=== PATIENT | male | born 1940 | race Caucasian/White ===

== ENCOUNTER 2024-03-20 16:06 | Inpatient (IN) | payer MEDICARE, BC ==
[~2024-03-20] VITALS: Ht 177.8 cm; Wt 94.0 kg
[2024-03-20 16:53] LABS: BASOPHILS % (AUTO) 0.6 % (0-1); EOSINOPHILS # (AUTO) 0.5 X10'3 (0-0.9); EOSINOPHILS % (AUTO) 7.9 % (0-6); HEMOGLOBIN 13.3 g/dl (14.0-17.9); LYMPHOCYTES # (AUTO) 1.3 X10'3 (1.1-4.8); LYMPHOCYTES % (AUTO) 18.5 % (21-51); MEAN CORPUSCULAR HGB CONC 33.2 g/dL (33.0-36.5); MEAN CORPUSCULAR VOLUME 99.3 FL (78-98); MEAN PLATELET VOLUME 7.4 FL (7.4-10.4); MONOCYTES % (AUTO) 14.8 % (2-12); NEUTROPHILS % (AUTO) 58.2 % (42-75); PLATELET COUNT 197 X10'3 (140-440); RED BLOOD COUNT 4.03 X10'6 (4.70-6.10); RED CELL DISTRIBUTION WIDTH 15.1 % (11.5-14.5); WHITE BLOOD COUNT 6.9 X10'3 (4.5-11.0)
[2024-03-20 17:13] LABS: ALBUMIN 2.9 G/DL (3.4-5.0); ANION GAP 10 (8-16); BLOOD UREA NITROGEN 39 MG/DL (7-18); BUN/CREATININE RATIO 21.8 (10.0-20.0); CALCIUM 9.1 MG/DL (8.5-10.1); CHLORIDE 106 MMOL/L (99-107); CREATININE 1.79 MG/DL (0.60-1.10); GLUCOSE 98 MG/DL (70-104); SODIUM 141 MMOL/L (135-145); eCRCL 34 ML/MIN; eGFR 36 ML/MIN
[2024-03-20] MEDS ORDERED: DOXA1TAB2 PO (18:11)
[2024-03-20] MEDS ORDERED: METO-384 PO (18:14)
[2024-03-20] MEDS ORDERED: FURO-149 PO (18:14)
[2024-03-20] MEDS ORDERED: SPIR25TA5 PO (18:15)
[2024-03-20] MEDS ORDERED: FLO0.4C PO (18:16)
[2024-03-20] MEDS ORDERED: BRIM5DRO6 EACHEYE (18:18)
[2024-03-20] MEDS ORDERED: APIX2.5T PO (18:18)
[2024-03-20 18:27] LABS: D-DIMER 1.78 MG/L FEU (0-0.50)
[2024-03-20] MEDS: normal saline 1000ML IV soln IVB ONE (18:41)
[2024-03-20] MEDS ORDERED: ondansetron/PF 4mg/2ml inj IV PRN (20:15)
[2024-03-20] MEDS ORDERED: HYDROmorphone/PF 0.2 MG/ML SYRINGE IV PRN (20:15)
[2024-03-20] MEDS ORDERED: magnesium sulf-water 4G/100mL 100 ML IV PRN (20:15)
[2024-03-20] MEDS ORDERED: magnesium Cl slow-release 64mg tablet PO PRN (20:15)
[2024-03-20] MEDS ORDERED: mag hydrox/Alum hydrox/simeth 30ml oral suspension PO PRN (20:15)
[2024-03-20] MEDS ORDERED: morphine 2 MG/ML inj. syringe IV PRN ×2 (20:15)
[2024-03-20] MEDS ORDERED: magnesium hydroxide 30ml (MOM) UD suspension PO PRN (20:15)
[2024-03-20] MEDS ORDERED: potassium Cl 40MEQ/1/2NS 520ml 520 ML IV PRN (20:15)
[2024-03-20] MEDS ORDERED: acetaminophen 325mg tablet PO PRN (20:15)
[2024-03-20] MEDS ORDERED: potassium Cl 20 mEq SR tablet PO PRN ×2 (20:15)
[2024-03-20] MEDS ORDERED: magnesium sulf-water 2g/50mL 50 ML IV PRN (20:15)
[2024-03-20] MEDS ORDERED: HYDROmorphone inj. 0.5 MG/0.5 ML DISP.SYRIN IV PRN (20:15)
[2024-03-20] MEDS: HEPARIN DRIP DVT/PE -**PHARMACIST TO DOSE IV ONE (20:40)
[2024-03-20 20:45] LABS: HEMOGLOBIN A1C 6.1 % (4.5-6.2)
[2024-03-20] MEDS ORDERED: heparin, porcine 5000 units/ml vial SQ SCH (21:00)
[2024-03-20 21:08] LABS: PRO BRAIN NATRIURETIC PEPTIDE 1448 PG/ML (0-450)
[2024-03-20 22:03] LABS: BASOPHILS % (AUTO) 0.6 % (0-1); EOSINOPHILS # (AUTO) 0.5 X10'3 (0-0.9); EOSINOPHILS % (AUTO) 7.1 % (0-6); HEMATOCRIT 38.2 % (42.0-52.0); HEMOGLOBIN 12.5 g/dl (14.0-17.9); MEAN CORPUSCULAR HEMOGLOBIN 32.2 PG (27.0-31.0); MEAN CORPUSCULAR HGB CONC 32.8 g/dL (33.0-36.5); MEAN CORPUSCULAR VOLUME 98.2 FL (78-98); MEAN PLATELET VOLUME 7.4 FL (7.4-10.4); MONOCYTES # (AUTO) 0.8 X10'3 (0-0.9); MONOCYTES % (AUTO) 11.5 % (2-12); NEUTROPHILS # (AUTO) 4.6 X10'3 (1.8-7.7); NEUTROPHILS % (AUTO) 65.8 % (42-75); PLATELET COUNT 190 X10'3 (140-440); RED BLOOD COUNT 3.89 X10'6 (4.70-6.10); RED CELL DISTRIBUTION WIDTH 15.1 % (11.5-14.5)
[2024-03-20 22:23] LABS: APTT 28 SECONDS (22-32); PROTHROMBIN TIME 10.4 SECONDS (9.0-12.0)
[2024-03-20 23:02] LABS: BILIRUBIN,URINE NEGATIVE (Neg); CLARITY,URINE CLEAR (Clear); COLOR,URINE YELLOW (Yellow); GLUCOSE, URINE NEGATIVE (Neg); KETONES,URINE NEGATIVE (Neg); LEUKOCYTE ESTERASE ,URINE NEGATIVE (Neg); NITRITES, URINE NEGATIVE (Neg); OCCULT BLOOD,URINE NEGATIVE (Neg); PROTEIN,URINE NEGATIVE (Neg); UROBILINOGEN,URINE 0.2 E.U/dL (0.2-1.0)
[2024-03-20 23:03] LABS: UA COLLECTION TYPE URINAL
[2024-03-20] MEDS: normal saline 1000ml 1,000 ML IV SCH (23:07)
[2024-03-20] MEDS: atorvastatin 20mg tablet PO SCH (23:07)
[2024-03-20] MEDS: metoprolol tartrate 50mg tablet PO SCH (23:08)
[2024-03-20] MEDS: heparin 25,000 UNIT/250ml bag 250 ML IV PRN (23:24)
[2024-03-20] MEDS: heparin 10,000 units/1 ML INJ IV ONE (23:25)
[2024-03-21] VITALS (9 sets, daily range): BP systolic 106–137; BP diastolic 55–80; PULSE 65–96; RESP 17–22; TEMP 97.5–98.7; O2SAT 94–96
[2024-03-21] MEDS: MESSAGE TO NURSING IV ONE ×4 (04:25→23:29)
[2024-03-21] MEDS ORDERED: nitroGLYCERIN 0.4mg SUBLingual tab SL PRN ×2 (04:45→15:20)
[2024-03-21] MEDS ORDERED: hydrALAZINE 20mg/ml inj. IV PRN (05:00)
[2024-03-21] MEDS: normal saline 1000ml 1,000 ML IV ONE (05:50)
[2024-03-21 07:16] LABS: BASOPHILS % (AUTO) 0.4 % (0-1); EOSINOPHILS # (AUTO) 0.4 X10'3 (0-0.9); EOSINOPHILS % (AUTO) 4.9 % (0-6); HEMOGLOBIN 13.1 g/dl (14.0-17.9); LYMPHOCYTES # (AUTO) 1.4 X10'3 (1.1-4.8); LYMPHOCYTES % (AUTO) 16.5 % (21-51); MEAN CORPUSCULAR HEMOGLOBIN 32.7 PG (27.0-31.0); MEAN CORPUSCULAR HGB CONC 32.7 g/dL (33.0-36.5); MEAN CORPUSCULAR VOLUME 99.9 FL (78-98); MEAN PLATELET VOLUME 8.2 FL (7.4-10.4); MONOCYTES # (AUTO) 1.1 X10'3 (0-0.9); MONOCYTES % (AUTO) 13.4 % (2-12); NEUTROPHILS # (AUTO) 5.5 X10'3 (1.8-7.7); NEUTROPHILS % (AUTO) 64.8 % (42-75); PLATELET COUNT 187 X10'3 (140-440); RED BLOOD COUNT 4.01 X10'6 (4.70-6.10); RED CELL DISTRIBUTION WIDTH 14.9 % (11.5-14.5); WHITE BLOOD COUNT 8.6 X10'3 (4.5-11.0)
[2024-03-21 07:29] LABS: INR 1.1 INR; PROTHROMBIN TIME 11.1 SECONDS (9.0-12.0)
[2024-03-21 07:52] LABS: ALANINE AMINOTRANSFERASE 22 U/L (12-78); ALBUMIN 2.9 G/DL (3.4-5.0); ALBUMIN/GLOBULIN RATIO 0.7 (1.1-1.5); ALKALINE PHOSPHATASE 79 IU/L (46-116); ANION GAP 8 (8-16); ASPARTATE AMINO TRANSFERASE 19 U/L (10-37); BILIRUBIN,TOTAL 0.9 MG/DL (0.1-1.0); BLOOD UREA NITROGEN 38 MG/DL (7-18); CALCIUM 8.5 MG/DL (8.5-10.1); CHLORIDE 109 MMOL/L (99-107); CHOL/HDL RATIO 3.6 (0.00-4.99); CHOLESTEROL 167 MG/DL (0-200); CREATININE 1.65 MG/DL (0.60-1.10); GLUCOSE 122 MG/DL (70-104); HDL CHOLESTEROL 47 MG/DL (35-60); LDL CHOLESTEROL 100 MG/DL (50-100); MAGNESIUM 1.9 MG/DL (1.5-2.4); POTASSIUM 4.2 MMOL/L (3.5-5.1); SODIUM 140 MMOL/L (135-145); TOTAL CARBON DIOXIDE 22.8 MMOL/L (24-32); TOTAL PROTEIN 6.9 G/DL (6.4-8.2); TRIGLYCERIDES 74 MG/DL (20-135); eCRCL 35 ML/MIN; eGFR 40 ML/MIN
[2024-03-21] MEDS ORDERED: heparin, porcine 5000 units/ml vial SQ SCH ×2 (08:00)
[2024-03-21] MEDS: K and/or MAG REPLACEMENT MC SCH (08:00)
[2024-03-21] MEDS ORDERED: carVEDilol 3.125mg tablet PO SCH (08:00)
[2024-03-21] MEDS: docusate sod 100mg capsule PO SCH (08:38)
[2024-03-21] MEDS ORDERED: aspirin 325mg tablet PO ONE (09:05)
[2024-03-21] MEDS ORDERED: regadenoson 0.4mg/5ml syringe IV PRN (15:20)
[2024-03-21] MEDS ORDERED: aminophylline 250mg/10ml inj. IV PRN (15:20)
[2024-03-21] MEDS ORDERED: metoprolol tartrate 1mg/ml inj IV PRN (15:20)
[2024-03-21] MEDS: azithromycin 250mg tablet PO SCH (17:41)
[2024-03-21] MEDS: methylPREDNISolone sod succ/PF 40mg inj. IV SCH (17:42)
[2024-03-21] MEDS: CefTRIAXone/D5W-Rocephin 1gm 50 ML IV SCH (18:01)
[2024-03-21] MEDS: Melatonin 3mg tablet PO ONE (23:53)
[2024-03-22] VITALS (7 sets, daily range): BP systolic 101–140; BP diastolic 54–78; PULSE 65–84; RESP 12–22; TEMP 97.6–98.9; O2SAT 95–99
[2024-03-22 05:48] LABS: BASOPHILS % (AUTO) 0.2 % (0-1); EOSINOPHILS % (AUTO) 0 % (0-6); HEMATOCRIT 26.6 % (42.0-52.0); HEMOGLOBIN 8.6 g/dl (14.0-17.9); LYMPHOCYTES # (AUTO) 0.6 X10'3 (1.1-4.8); LYMPHOCYTES % (AUTO) 11.9 % (21-51); MEAN CORPUSCULAR HEMOGLOBIN 32.5 PG (27.0-31.0); MEAN CORPUSCULAR HGB CONC 32.2 g/dL (33.0-36.5); MEAN CORPUSCULAR VOLUME 100.9 FL (78-98); MEAN PLATELET VOLUME 7.9 FL (7.4-10.4); MONOCYTES # (AUTO) 0.1 X10'3 (0-0.9); MONOCYTES % (AUTO) 2.3 % (2-12); NEUTROPHILS # (AUTO) 4.2 X10'3 (1.8-7.7); NEUTROPHILS % (AUTO) 85.6 % (42-75); PLATELET COUNT 115 X10'3 (140-440); RED BLOOD COUNT 2.64 X10'6 (4.70-6.10); RED CELL DISTRIBUTION WIDTH 15.2 % (11.5-14.5); WHITE BLOOD COUNT 4.9 X10'3 (4.5-11.0)
[2024-03-22 05:50] LABS: PROTHROMBIN TIME 10.5 SECONDS (9.0-12.0)
[2024-03-22 05:55] LABS: ALANINE AMINOTRANSFERASE 16 U/L (12-78); ALBUMIN 2.2 G/DL (3.4-5.0); ALBUMIN/GLOBULIN RATIO 0.6 (1.1-1.5); ALKALINE PHOSPHATASE 60 IU/L (46-116); ANION GAP 8 (8-16); ASPARTATE AMINO TRANSFERASE 17 U/L (10-37); BILIRUBIN,TOTAL 0.5 MG/DL (0.1-1.0); BLOOD UREA NITROGEN 30 MG/DL (7-18); CALCIUM 7.3 MG/DL (8.5-10.1); CHLORIDE 114 MMOL/L (99-107); GLUCOSE 133 MG/DL (70-104); MAGNESIUM 1.6 MG/DL (1.5-2.4); POTASSIUM 3.5 MMOL/L (3.5-5.1); SODIUM 142 MMOL/L (135-145); TOTAL CARBON DIOXIDE 19.7 MMOL/L (24-32); TOTAL PROTEIN 5.7 G/DL (6.4-8.2); eCRCL 48 ML/MIN; eGFR 58 ML/MIN
[2024-03-22] MEDS: heparin 10,000 units/1 ML INJ IV PRN (06:12)
[2024-03-22] MEDS: MESSAGE TO NURSING IV ONE ×2 (06:17→20:52)
[2024-03-22] MEDS: normal saline 1000ml 1,000 ML IV ONE (08:00)
[2024-03-22] MEDS ORDERED: aspirin 81mg tab.chew PO SCH (08:30)
[2024-03-22] MEDS: furosemide 20 MG/2 ML vial IV SCH (09:08)
[2024-03-22] MEDS: metoprolol succinate 25mg (24-HOUR) SR. Tablet PO SCH (09:09)
[2024-03-22] MEDS: EMPAGLIFLOZIN 10 MG TABLET PO SCH (09:10)
[2024-03-22] MEDS: atorvastatin 20mg tablet PO SCH (09:10)
[2024-03-22 10:48] LABS: HEMATOCRIT 37.7 % (42.0-52.0); HEMOGLOBIN 12.6 g/dl (14.0-17.9); MEAN CORPUSCULAR HEMOGLOBIN 33.1 PG (27.0-31.0); MEAN CORPUSCULAR HGB CONC 33.3 g/dL (33.0-36.5); MEAN CORPUSCULAR VOLUME 99.3 FL (78-98); MEAN PLATELET VOLUME 7.9 FL (7.4-10.4); PLATELET COUNT 182 X10'3 (140-440); RED CELL DISTRIBUTION WIDTH 15.3 % (11.5-14.5); WHITE BLOOD COUNT 7.1 X10'3 (4.5-11.0)
[2024-03-22] MEDS: pantoprazole 40 MG vial IV SCH (11:07)
[2024-03-22] MEDS: folic acid 1mg tablet PO SCH (11:10)
[2024-03-22] MEDS ORDERED: iohexol 350MG/ML 100ml bottle IV ONE (13:06)
[2024-03-22 17:57] LABS: APTT 122 SECONDS (22-32)
[2024-03-22] MEDS ORDERED: nitroGLYCERIN 0.4mg SUBLingual tab SL PRN (18:40)
[2024-03-22] MEDS ORDERED: metoprolol tartrate 1mg/ml inj IV PRN (18:40)
[2024-03-22] MEDS ORDERED: aminophylline 250mg/10ml inj. IV PRN (18:40)
[2024-03-23] VITALS (10 sets, daily range): BP systolic 127–161; BP diastolic 66–102; PULSE 68–105; RESP 18–20; TEMP 97.4–97.6; O2SAT 95–98
[2024-03-23 07:02] LABS: INR 1.1 INR; PROTHROMBIN TIME 11.3 SECONDS (9.0-12.0)
[2024-03-23 07:08] LABS: BASOPHILS % (AUTO) 0.1 % (0-1); EOSINOPHILS % (AUTO) 0 % (0-6); HEMATOCRIT 39.7 % (42.0-52.0); HEMOGLOBIN 12.9 g/dl (14.0-17.9); LYMPHOCYTES # (AUTO) 0.8 X10'3 (1.1-4.8); LYMPHOCYTES % (AUTO) 7.5 % (21-51); MEAN CORPUSCULAR HEMOGLOBIN 32.4 PG (27.0-31.0); MEAN CORPUSCULAR HGB CONC 32.5 g/dL (33.0-36.5); MEAN CORPUSCULAR VOLUME 99.6 FL (78-98); MEAN PLATELET VOLUME 8.2 FL (7.4-10.4); MONOCYTES # (AUTO) 0.6 X10'3 (0-0.9); MONOCYTES % (AUTO) 5.5 % (2-12); NEUTROPHILS # (AUTO) 9.4 X10'3 (1.8-7.7); NEUTROPHILS % (AUTO) 86.9 % (42-75); PLATELET COUNT 204 X10'3 (140-440); RED BLOOD COUNT 3.99 X10'6 (4.70-6.10); RED CELL DISTRIBUTION WIDTH 15.3 % (11.5-14.5); WHITE BLOOD COUNT 10.8 X10'3 (4.5-11.0)
[2024-03-23 07:10] LABS: ALANINE AMINOTRANSFERASE 29 U/L (12-78); ALBUMIN 2.8 G/DL (3.4-5.0); ALBUMIN/GLOBULIN RATIO 0.7 (1.1-1.5); ALKALINE PHOSPHATASE 72 IU/L (46-116); ANION GAP 9 (8-16); ASPARTATE AMINO TRANSFERASE 18 U/L (10-37); BILIRUBIN,TOTAL 0.3 MG/DL (0.1-1.0); BLOOD UREA NITROGEN 37 MG/DL (7-18); BUN/CREATININE RATIO 20.6 (10.0-20.0); CALCIUM 8.5 MG/DL (8.5-10.1); CHLORIDE 111 MMOL/L (99-107); GLUCOSE 157 MG/DL (70-104); POTASSIUM 4.2 MMOL/L (3.5-5.1); SODIUM 143 MMOL/L (135-145); TOTAL CARBON DIOXIDE 23.1 MMOL/L (24-32); eCRCL 32 ML/MIN; eGFR 36 ML/MIN
[2024-03-23] MEDS: MESSAGE TO NURSING IV ONE ×2 (08:31→13:52)
[2024-03-23] MEDS: regadenoson 0.4mg/5ml syringe IV PRN (10:25)
[2024-03-23] MEDS ORDERED: LEVO-65 PO (14:13)
[2024-03-23] MEDS ORDERED: ATOR20TA66 PO (14:13)
[2024-03-23] MEDS ORDERED: PRED10TA23 PO (14:22)
== END 2024-03-23 16:04 | disposition home health service (06) | DRG 193 ==
LOC: ER 16:07 → ED HOLD 20:23 → PCU 3S 03-21 02:08
PROVIDERS: ADMIT Surgery Surgical Critical Care; ATTEND Family Medicine
PROC: CB1YYZZ Planar Nuclear Medicine Imaging of Respiratory System using Other Radionuclide (ICD-10-PCS; 2024-03-21)
PROC: B32T1ZZ Computerized Tomography (CT Scan) of Left Pulmonary Artery using Low Osmolar Contrast (ICD-10-PCS; principal; 2024-03-22)
PROC: B3201ZZ Computerized Tomography (CT Scan) of Thoracic Aorta using Low Osmolar Contrast (ICD-10-PCS; 2024-03-22)
PROC: B32S1ZZ Computerized Tomography (CT Scan) of Right Pulmonary Artery using Low Osmolar Contrast (ICD-10-PCS; 2024-03-22)
PROC: 4A02XM4 Measurement of Cardiac Total Activity, External Approach (ICD-10-PCS; 2024-03-23)
PROC: 3E033HZ Introduction of Radioactive Substance into Peripheral Vein, Percutaneous Approach (ICD-10-PCS; 2024-03-23)
DX: J15.9 Unspecified bacterial pneumonia (principal); I21.A1 Myocardial infarction type 2; I13.0 Hypertensive heart and chronic kidney disease with heart failure and stage 1 through stage 4 chronic kidney disease, or unspecified chronic kidney disease; Q21.12 Patent foramen ovale; I50.32 Chronic diastolic (congestive) heart failure; I87.2 Venous insufficiency (chronic) (peripheral); D53.9 Nutritional anemia, unspecified; E10.22 Type 1 diabetes mellitus with diabetic chronic kidney disease; E78.5 Hyperlipidemia, unspecified; N18.30 Chronic kidney disease, stage 3 unspecified; I48.91 Unspecified atrial fibrillation; Z86.718 Personal history of other venous thrombosis and embolism; Z79.01 Long term (current) use of anticoagulants; Z79.899 Other long term (current) drug therapy; Z86.711 Personal history of pulmonary embolism
CPT/HCPCS: 36415; 71045; 71275; 78452; 78582; 80048; 80053; 80061; 81003; 83036; 83605; 83735; 83880; 84145; 84484; 85025; 85027; 85379; 85610; 85730; 87040; 87077; 87081; 87186; 93005; 93017; 93306; 93970; 97116; 97161; 97530; 99291; A6258; A9500; A9539; A9540; G0378; J0696; J1644; J1940; J2470; J2785; J2919; J7030; J7040; Q9967